=== PATIENT | male | born 1990 | race Caucasian/White ===

== ENCOUNTER 2020-08-17 21:46 | Emergency (ER) | payer BC ==
[2020-08-17 21:57] VITALS: TEMP 98.8
[2020-08-17] MEDS ORDERED: ONDANSETRON 4 MG/2 ML VIAL IVP STA (22:20)
[2020-08-17] MEDS ORDERED: SODIUM CHLORIDE 0.9% 1,000 ML IV ONE (22:20)
--- NOTE | 2020-08-17 23:17 | ED ---
General Adult HPI - General Chief complaint: Shortness of Breath Stated complaint: COVID+,SOB Time Seen by Provider: 08/17/20 22:01 Source: patient Mode of arrival: ambulatory Limitations: no limitations - History of Present Illness Initial comments: 30-year-old male patient presents to emergency department today for evaluation of worsening COVID-19 symptoms. Patient states that he started having symptoms and tested positive for Covid on 08/10/20. Was seen at [facility], does not have proof of positive result. Patient states that he was doing okay, then over the last couple of days became more short of breath, nauseated, no appetite, increased coughing. States when he coughs he gets pain in his chest. States he has been taking mucinex and his doctor gave him a prescription of tessalon perles. Patient denies any recent rash, abdominal pain, vomiting, diarrhea, constipation, back pain, numbness, tingling, dizziness, hematuria, dysuria, urinary urgency, urinary frequency, headache, visual changes, or any other complaints. - Related Data Home Medications Medication Instructions Recorded Confirmed Benzonatate [Benzonatate Perle] 200 mg PO TID PRN 08/17/20 08/17/20 guaiFENesin [Mucinex] 600 mg PO Q12H PRN 08/17/20 08/17/20 Allergies Allergy/AdvReac Type Severity Reaction Status Date / Time Penicillins Allergy Rash/Hives Verified 08/17/20 23:07 Review of Systems ROS Statement: Those systems with pertinent positive or pertinent negative responses have been documented in the HPI. ROS Other: All systems not noted in ROS Statement are negative. Past Medical History Past Medical History: No Reported History History of Any Multi-Drug Resistant Organisms: None Reported Past Surgical History: No Surgical Hx Reported Past Psychological History: No Psychological Hx Reported Smoking Status: Never smoker Past Alcohol Use History: Occasional Past Drug Use History: None Reported General Exam Limitations: no limitations General appearance: alert, in no apparent distress, other (This well-developed, well-nourished adult male patient in no acute distress. Vital signs upon presentation are temperature 98.8F, pulse 96, respirations 18, blood pressure 154/94, pulse ox 97% on room air.) Eye exam: Present: normal appearance, PERRL, EOMI. Absent: scleral icterus, conjunctival injection, periorbital swelling ENT exam: Present: normal exam, normal oropharynx, mucous membranes moist Respiratory exam: Present: normal lung sounds bilaterally. Absent: respiratory distress, wheezes, rales, rhonchi, stridor Cardiovascular Exam: Present: regular rate, normal rhythm, normal heart sounds. Absent: systolic murmur, diastolic murmur, rubs, gallop, clicks GI/Abdominal exam: Present: soft, normal bowel sounds. Absent: distended, tenderness, guarding, rebound, rigid Neurological exam: Present: alert, oriented X3, CN II-XII intact Psychiatric exam: Present: normal affect, normal mood Skin exam: Present: warm, dry, intact, normal color. Absent: rash Course Vital Signs 08/17/20 08/18/20 21:52 00:54 Temperature 98.8 F Pulse Rate 96 84 Respiratory 18 18 Rate Blood Pressure 154/94 134/55 O2 Sat by Pulse 97 96 Oximetry Medical Decision Making - Medical Decision Making 30 year-old male patient presents to the emergency department for evaluation of increased shortness of breath and cough after being diagnosed with COVID. Physical examination is unremarkable. V/S are good. Chest xray showed no evidence for infiltrates or pneumonia. Patient does meet criteria for family and a banana. I did discuss this medication including risks versus benefits. He agreed to receive the medicine. He was monitored for an hour after the infusion without any complications. He'll be discharged to follow up with his primary care physician for recheck in 1-2 days. Return parameters were discussed in detail. He verbalizes understanding and agrees this plan. Case discussed with Dr. Mccain. - Lab Data Lab Results 08/17/20 Range/Units 23:03 Coronavirus (PCR) Detected A (Not Detectd) - Radiology Data Radiology results: report reviewed, image reviewed 1 view of the chest sows normal heart, no lung disease. Report by Dr. Zuleta. Disposition Clinical Impression: COVID-19 Disposition: HOME SELF-CARE Condition: Good Instructions (If sedation given, give patient instructions): Coronavirus Disease 2019 (COVID-19) Additional Instructions: Increase fluids. Rest. Follow up with your primary care physician for recheck in 1-2 days. Return for any new, worsening, or concerning symptoms. Is patient prescribed a controlled substance at d/c from ED?: No Referrals: None,Stated [Primary Care Provider] - 1-2 days Time of Disposition: 02:20
--- NOTE | 2020-08-17 23:23 | XR ---
EXAMINATION TYPE: XR chest 1V DATE OF EXAM: 08/17/2020 COMPARISON: NONE HISTORY: Cough TECHNIQUE: Single view FINDINGS: Heart and mediastinum are normal. Lungs are clear of consolidation. There are no hilar mass es. Costophrenic angles are clear. The bony thorax is intact. The pulmonary vascularity is normal. IMPRESSION: Normal heart. No acute lung disease.
[2020-08-18] MEDS ORDERED: BAMLANIVIMAB (EUA) 700 MG, ETESEVIMAB (EUA) 1,400 MG in SODIUM CHLORIDE 0.9% 50 ML IVPB ONE (00:45)
[2020-08-18 02:18] VITALS: BP 138/60; PULSE 75; RESP 16
== END 2020-08-18 02:18 | disposition home or self-care (01) ==
LOC: EC 21:46
DX: U07.1 COVID-19 (principal)
CPT/HCPCS: 87635; 71045; 99285; 96365; 96375; J2405; Q0245

== ENCOUNTER 2021-08-02 00:55 | Emergency (ER) | payer BC, OTHER ==
[2021-08-02 01:06] VITALS: TEMP 97.1
[2021-08-02] MEDS ORDERED: ONDANSETRON 4 MG/2 ML VIAL IVP STA (01:54)
[2021-08-02] MEDS ORDERED: MORPHINE SULFATE 4 MG/ML SYRINGE IV STA (01:54)
[2021-08-02] MEDS ORDERED: SODIUM CHLORIDE 0.9% 1,000 ML IV STA (01:54)
--- NOTE | 2021-08-02 02:03 | ED ---
Abdominal Pain HPI - General Chief Complaint: Abdominal Pain Stated Complaint: Abd Pain Time Seen by Provider: 08/02/21 01:09 Source: patient, RN notes reviewed, old records reviewed Mode of arrival: ambulatory Limitations: no limitations - History of Present Illness Initial Comments: This is a 31-year-old male DF for evaluation. Patient has no significant medical history takes no medications. Patient presents with sudden onset of periumbilical crampy pressure-like abdominal pain rating to his back. No history of trauma no history of kidney stones no fevers no surgical history again no medical history takes no medications. Patient states again the pain was sudden onset has persistent here in the ER - Related Data Home Medications Medication Instructions Recorded Confirmed Benzonatate [Benzonatate Perle] 200 mg PO TID PRN 08/17/20 08/17/20 guaiFENesin [Mucinex] 600 mg PO Q12H PRN 08/17/20 08/17/20 Allergies Allergy/AdvReac Type Severity Reaction Status Date / Time Penicillins Allergy Rash/Hives Verified 08/17/20 23:07 Review of Systems ROS Statement: Those systems with pertinent positive or pertinent negative responses have been documented in the HPI. ROS Other: All systems not noted in ROS Statement are negative. Past Medical History Past Medical History: No Reported History History of Any Multi-Drug Resistant Organisms: None Reported Past Surgical History: No Surgical Hx Reported Past Psychological History: No Psychological Hx Reported Smoking Status: Never smoker Past Alcohol Use History: Occasional Past Drug Use History: None Reported General Exam Limitations: no limitations General appearance: alert, in no apparent distress Head exam: Present: atraumatic, normocephalic, normal inspection Eye exam: Present: normal appearance, PERRL, EOMI. Absent: scleral icterus, conjunctival injection, periorbital swelling ENT exam: Present: normal exam, mucous membranes moist Neck exam: Present: normal inspection. Absent: tenderness, meningismus, lymphadenopathy Respiratory exam: Present: normal lung sounds bilaterally. Absent: respiratory distress, wheezes, rales, rhonchi, stridor Cardiovascular Exam: Present: regular rate, normal rhythm, normal heart sounds. Absent: systolic murmur, diastolic murmur, rubs, gallop, clicks GI/Abdominal exam: Present: soft, normal bowel sounds. Absent: distended, tenderness, guarding, rebound, rigid Extremities exam: Present: normal inspection, full ROM, normal capillary refill. Absent: tenderness, pedal edema, joint swelling, calf tenderness Back exam: Present: normal inspection Neurological exam: Present: alert, oriented X3, CN II-XII intact Psychiatric exam: Present: normal affect, normal mood Skin exam: Present: warm, dry, intact, normal color. Absent: rash Course Vital Signs 08/02/21 08/02/21 08/02/21 01:02 02:05 03:00 Temperature 97.1 F L Pulse Rate 88 84 82 Respiratory 20 18 18 Rate Blood Pressure 171/112 171/111 181/100 O2 Sat by Pulse 100 95 97 Oximetry - Reevaluation(s) Reevaluation #1: 08/02/21 04:23 Medical record is reviewed Reevaluation #2: 08/02/21 04:23 Patient symptoms are improved, resolved Reevaluation #3: 08/02/21 04:23 Patient informed results and questions answered Reevaluation #4: 08/02/21 04:23 Spoke with patient at length regarding elevated blood pressure need for primary care Medical Decision Making - Medical Decision Making 31 male to the emergency department for evaluation of significant abdominal pain. Pain is improved, resolved here in the ER, patient feels improved and can be discharged home - Lab Data Result diagrams: 08/02/21 01:59 08/02/21 01:59 Lab Results 08/02/21 08/02/21 Range/Units 01:59 01:59 WBC 9.8 (3.8-10.6) k/uL RBC 5.07 (4.30-5.90) m/uL Hgb 13.9 (13.0-17.5) gm/dL Hct 42.0 (39.0-53.0) % MCV 82.9 (80.0-100.0) fL MCH 27.4 (25.0-35.0) pg MCHC 33.1 (31.0-37.0) g/dL RDW 12.8 (11.5-15.5) % Plt Count 274 (150-450) k/uL MPV 7.6 Neutrophils % 74 % Lymphocytes % 18 % Monocytes % 5 % Eosinophils % 2 % Basophils % 1 % Neutrophils # 7.3 (1.3-7.7) k/uL Lymphocytes # 1.7 (1.0-4.8) k/uL Monocytes # 0.5 (0-1.0) k/uL Eosinophils # 0.1 (0-0.7) k/uL Basophils # 0.1 (0-0.2) k/uL Sodium 137 (137-145) mmol/L Potassium 4.3 (3.5-5.1) mmol/L Chloride 104 (98-107) mmol/L Carbon Dioxide 21 L (22-30) mmol/L Anion Gap 12 mmol/L BUN 23 H (9-20) mg/dL Creatinine 0.90 (0.66-1.25) mg/dL Est GFR (CKD-EPI)AfAm >90 (>60 ml/min/1.73 sqM) Est GFR (CKD-EPI)NonAf >90 (>60 ml/min/1.73 sqM) Glucose 140 H (74-99) mg/dL Calcium 9.1 (8.4-10.2) mg/dL Total Bilirubin 0.9 (0.2-1.3) mg/dL AST 42 (17-59) U/L ALT 54 H (4-49) U/L Alkaline Phosphatase 110 (38-126) U/L Total Protein 8.0 (6.3-8.2) g/dL Albumin 4.6 (3.5-5.0) g/dL Amylase 42 (30-110) U/L Lipase 52 (23-300) U/L Disposition Clinical Impression: Abdominal pain Disposition: HOME SELF-CARE Condition: Good Instructions (If sedation given, give patient instructions): Abdominal Pain (ED) Is patient prescribed a controlled substance at d/c from ED?: No Referrals: None,Stated [Primary Care Provider] - 1-2 days
[2021-08-02 02:11] LABS: Basophils # (A) 0.1 k/uL (0-0.2); Basophils % (A) 1 %; Eosinophils # (A) 0.1 k/uL (0-0.7); Eosinophils % (A) 2 %; HGB 13.9 gm/dL (13.0-17.5); Lymphocytes # (A) 1.7 k/uL (1.0-4.8); Lymphocytes % (A) 18 %; MCH 27.4 pg (25.0-35.0); MCHC 33.1 g/dL (31.0-37.0); MCV 82.9 fL (80.0-100.0); Mean Platelet Volume 7.6; Monocytes # (A) 0.5 k/uL (0-1.0); Monocytes % (A) 5 %; Neutrophils # (A) 7.3 k/uL (1.3-7.7); Neutrophils % (A) 74 %; Platelet Count 274 k/uL (150-450); RBC 5.07 m/uL (4.30-5.90); RDW 12.8 % (11.5-15.5); WBC 9.8 k/uL (3.8-10.6)
[2021-08-02 02:23] LABS: ALT 54 U/L (4-49); AST 42 U/L (17-59); African American GFR (CKD) >90 (>60 ml/min/1.73 sqM); Albumin 4.6 g/dL (3.5-5.0); Alkaline Phosphatase 110 U/L (38-126); Amylase 42 U/L (30-110); Anion Gap 12 mmol/L; Blood Urea Nitrogen 23 mg/dL (9-20); Calcium 9.1 mg/dL (8.4-10.2); Carbon Dioxide 21 mmol/L (22-30); Chloride 104 mmol/L (98-107); Glucose 140 mg/dL (74-99); Lipase 52 U/L (23-300); Non-African American GFR(CKD) >90 (>60 ml/min/1.73 sqM); Sodium 137 mmol/L (137-145); Total Bilirubin 0.9 mg/dL (0.2-1.3)
[2021-08-02 02:37] LABS: Potassium 4.3 mmol/L (3.5-5.1)
[2021-08-02 03:18] VITALS: RESP 18
--- NOTE | 2021-08-02 03:30 | CT ---
EXAMINATION TYPE: CT abdomen pelvis w con DATE OF EXAM: 08/02/2021 COMPARISON: None HISTORY: back pain pt. unable to hold still for first scan. best images possible given Pt. conditi on CT DLP: 2846.4 mGycm Automated exposure control for dose reduction was used. CONTRAST: Performed with IV Contrast, patient injected with 100 mL of Isovue 300. Images obtained from the diaphragm to the floor the pelvis with IV contrast. FINDINGS: Lung bases are clear. There is no pleural effusion. Heart size is normal. There is no pericardial eff usion. Liver spleen and stomach pancreas and gallbladder appear normal. The bile ducts are nondilated. There is no adrenal mass. Kidneys show satisfactory contrast opacification. There is no hydronephrosi s. Ureters are not dilated. Appendix is posterior and appears normal. Bladder distends smoothly. Ther e is no inguinal hernia. No free fluid in the pelvis. Delayed images show normal renal excretion. There is no mesenteric edema. There is no ascites or free air. There is no bowel obstruction. Exam li mited slightly by motion. The lumbar spine is intact. No compression fracture. Bony pelvis appears in tact. IMPRESSION: Exam limited slightly by motion. No evidence of acute abdomen and pelvis. Normal appendix.
[2021-08-02 04:01] LABS: Appearance,Urine Clear (Clear); Bilirubin,Urine Negative (Negative); Blood,Urine Negative (Negative); Color,Urine Yellow; Glucose,Urine (UA) Negative (Negative); Ketones,Urine 1+ (Negative); Leukocyte Esterase,Urine Negative (Negative); Nitrite,Urine Negative (Negative); Protein,Urine Negative (Negative); Urobilinogen,Urine <2.0 mg/dL (<2.0)
[2021-08-02 04:31] VITALS: BP 154/84; PULSE 79
== END 2021-08-02 04:43 | disposition home or self-care (01) ==
LOC: EC 00:55
DX: R10.33 Periumbilical pain (principal)
CPT/HCPCS: 36415; 80053; 82150; 83690; 85025; 81003; 74177; 99284; 96374; 96375; 96361 ×2; J2270; J2405; Q9967

== ENCOUNTER 2021-08-07 09:37 | Inpatient (IN) | payer BC, OTHER ==
[2021-08-07 10:37] LABS: Basophils % (A) 0 %; Eosinophils # (A) 0.2 k/uL (0-0.7); Eosinophils % (A) 2 %; HGB 13.3 gm/dL (13.0-17.5); Lymphocytes # (A) 1.8 k/uL (1.0-4.8); Lymphocytes % (A) 23 %; MCH 27.4 pg (25.0-35.0); MCHC 33.3 g/dL (31.0-37.0); MCV 82.4 fL (80.0-100.0); Mean Platelet Volume 7.1; Monocytes # (A) 0.4 k/uL (0-1.0); Monocytes % (A) 5 %; Neutrophils # (A) 5.5 k/uL (1.3-7.7); Neutrophils % (A) 69 %; Platelet Count 297 k/uL (150-450); RBC 4.85 m/uL (4.30-5.90)
[2021-08-07] MEDS ORDERED: SODIUM CHLORIDE 0.9% 1,000 ML IV STA (10:47)
[2021-08-07] MEDS ORDERED: NALOXONE 0.4 MG/ML 1 ML VIAL IV PRN (10:49)
[2021-08-07] MEDS ORDERED: ONDANSETRON 4 MG/2 ML VIAL IVP PRN (10:49)
[2021-08-07 10:50] LABS: INR 0.9 (<1.2); Partial Thromboplastin Time 26.7 sec (22.0-30.0)
--- NOTE | 2021-08-07 10:51 | ED ---
General Adult HPI - General Chief complaint: Abdominal Pain Stated complaint: Gall Bladder Time Seen by Provider: 08/07/21 09:40 Source: patient, EMS, RN notes reviewed, old records reviewed Mode of arrival: EMS Limitations: no limitations - History of Present Illness Initial comments: Patient is a 31-year-old male who presents after being transferred from [facility] emergency department. Patient originally presented there complaining of a one- week history of abdominal pain, nausea, vomiting. Patient was originally evaluated here last Tuesday, and had a normal workup. Was sent home. States the symptoms somewhat improved but over the last 1-2 days has been having worsening epigastric and right upper quadrant abdominal pain, right shoulder pain, as well as nausea and vomiting that is nonbilious and nonbloody. Denies any diarrhea. He was diagnosed with acute cholecystitis based on CT imaging at the outpatient facility. Revealed a thickened gallbladder wall as well as pericholecystic fluid. Laboratory studies at the outpatient facility were relatively unremarkable. Patient was started on IV Rocephin and Flagyl, and then transferred to our facility for surgical evaluation. Patient arrives and states his pain is relatively under control. His no other acute complaint at this time. I recommended he stay nothing by mouth at this time. Denies chest pain, shortness breath, fevers, chills, cough. - Related Data Home Medications Medication Instructions Recorded Confirmed Ascorbic Acid [Vitamin C] 1,000 mg PO DAILY 08/07/21 08/07/21 Cholecalciferol (Vitamin D3) 75 mcg PO DAILY 08/07/21 08/07/21 [Vitamin D3 (3000 Iu)] Magnesium Oxide [Simmons] 500 mg PO DAILY 08/07/21 08/07/21 Riboflavin (Vitamin B2) [Vitamin 50 mg PO DAILY 08/07/21 08/07/21 B-2] Zinc Gluconate [Zinc] 50 mg PO DAILY 08/07/21 08/07/21 Allergies Allergy/AdvReac Type Severity Reaction Status Date / Time Penicillins Allergy Rash/Hives Verified 08/07/21 10:39 Review of Systems ROS Statement: Those systems with pertinent positive or pertinent negative responses have been documented in the HPI. Review of Systems: CONST: Denies fever EYES: Denies blurry vision ENT: Denies nasal congestion C/V: Denies Chest pain RESP: Denies shortness of breath GI: Endorses abdominal pain : Denies dysuria SKIN: Denies rash. MSK: Denies joint pain. NEURO: Denies headache ROS Other: All systems not noted in ROS Statement are negative. Past Medical History Past Medical History: No Reported History History of Any Multi-Drug Resistant Organisms: None Reported Past Surgical History: No Surgical Hx Reported Past Psychological History: No Psychological Hx Reported Smoking Status: Never smoker Past Alcohol Use History: Occasional Past Drug Use History: None Reported - Past Family History Father Family Medical History: Congestive Heart Failure (CHF), Diabetes Mellitus, Hypertension Additional Family Medical History / Comment(s): Obesity Mother Family Medical History: No Reported History Additional Family Medical History / Comment(s): Mother is healthy General Exam - General Exam Comments Initial Comments: General: Appears in no acute distress. HEAD: Normal with no signs of head trauma. EYES: PERRLA, EOMI, conjunctiva normal, no discharge. ENT: Hearing grossly intact, normal oropharynx. RESPIRATORY: Clear breath sounds bilaterally. No wheezes, rales, or rhonchi. C/V: Regular rate and rhythm. S1 and S2 auscultated, no edema, peripheral pulses 2+ and intact throughout ABD: Abdomen soft, nondistended. Patient is tender to palpation epigastric and right upper quadrant. No guarding. No peritoneal signs. No rebound tenderness. EXT: Normal range of motion, no obvious deformity SKIN: No rashes or lesions observed on exposed skin. NEURO: Alert and oriented 4. Limitations: no limitations Course Vital Signs 08/07/21 08/07/21 09:50 11:41 Temperature 98.7 F Pulse Rate 86 61 Respiratory 18 16 Rate Blood Pressure 126/81 135/78 O2 Sat by Pulse 97 95 Oximetry Medical Decision Making - Medical Decision Making Based on the patient's presentation and physical exam, I do believe he is likely experiencing acute cystitis. I did review the patient's laboratory studies and imaging results from the outpatient facility. We will obtain repeat laboratory studies as well as right upper quadrant ultrasound. We will continue the patient's daily Rocephin as well as 3 times a day Flagyl. He will be started on IV fluids. Patient is made nothing by mouth at this time. He was in agreement this plan. IV morphine as needed for pain. Laboratory studies are remarkable for mildly elevated ALT of 56. Otherwise unremarkable. Covid ultrasound revealed findings consistent with the CT imaging, with a thickened gallbladder wall with surrounding pericholecystic edema/fluid. On reevaluation, patient remains unchanged. I discussed the findings with him. I would like to admit him. He was in agreement this plan. I spoke with the admitting surgeon, Dr. Waldron was in agreement this plan. He'll evaluate the patient and determine need for surgery later today. Patient NPO in the meantime. - Lab Data Result diagrams: 08/07/21 10:22 08/07/21 10:22 Lab Results 08/07/21 08/07/21 08/07/21 Range/Units 10:22 10:22 10:22 WBC 8.0 (3.8-10.6) k/uL RBC 4.85 (4.30-5.90) m/uL Hgb 13.3 (13.0-17.5) gm/dL Hct 40.0 (39.0-53.0) % MCV 82.4 (80.0-100.0) fL MCH 27.4 (25.0-35.0) pg MCHC 33.3 (31.0-37.0) g/dL RDW 13.0 (11.5-15.5) % Plt Count 297 (150-450) k/uL MPV 7.1 Neutrophils % 69 % Lymphocytes % 23 % Monocytes % 5 % Eosinophils % 2 % Basophils % 0 % Neutrophils # 5.5 (1.3-7.7) k/uL Lymphocytes # 1.8 (1.0-4.8) k/uL Monocytes # 0.4 (0-1.0) k/uL Eosinophils # 0.2 (0-0.7) k/uL Basophils # 0.0 (0-0.2) k/uL PT 10.0 (9.0-12.0) sec INR 0.9 (<1.2) APTT 26.7 (22.0-30.0) sec Sodium 140 (137-145) mmol/L Potassium 4.1 (3.5-5.1) mmol/L Chloride 106 (98-107) mmol/L Carbon Dioxide 23 (22-30) mmol/L Anion Gap 11 mmol/L BUN 14 (9-20) mg/dL Creatinine 0.76 (0.66-1.25) mg/dL Est GFR (CKD-EPI)AfAm >90 (>60 ml/min/1.73 sqM) Est GFR (CKD-EPI)NonAf >90 (>60 ml/min/1.73 sqM) Glucose 98 (74-99) mg/dL Calcium 8.4 (8.4-10.2) mg/dL Total Bilirubin 0.8 (0.2-1.3) mg/dL AST 30 (17-59) U/L ALT 56 H (4-49) U/L Alkaline Phosphatase 108 (38-126) U/L Total Protein 7.1 (6.3-8.2) g/dL Albumin 3.8 (3.5-5.0) g/dL Amylase 38 (30-110) U/L Lipase 32 (23-300) U/L Disposition Clinical Impression: Acute cholecystitis Disposition: ADMITTED IP TO THIS [facility] Condition: Stable Time of Disposition: 10:40
[2021-08-07 11:00] LABS: ALT 56 U/L (4-49); AST 30 U/L (17-59); African American GFR (CKD) >90 (>60 ml/min/1.73 sqM); Albumin 3.8 g/dL (3.5-5.0); Alkaline Phosphatase 108 U/L (38-126); Amylase 38 U/L (30-110); Anion Gap 11 mmol/L; Blood Urea Nitrogen 14 mg/dL (9-20); Calcium 8.4 mg/dL (8.4-10.2); Carbon Dioxide 23 mmol/L (22-30); Chloride 106 mmol/L (98-107); Glucose 98 mg/dL (74-99); Lipase 32 U/L (23-300); Non-African American GFR(CKD) >90 (>60 ml/min/1.73 sqM); Potassium 4.1 mmol/L (3.5-5.1); Sodium 140 mmol/L (137-145); Total Bilirubin 0.8 mg/dL (0.2-1.3); Total Protein 7.1 g/dL (6.3-8.2)
--- NOTE | 2021-08-07 11:21 | US ---
EXAMINATION TYPE: US gallbladder DATE OF EXAM: 08/07/2021 COMPARISON: Outside CT dated 08/07/2021 CLINICAL HISTORY: pain, cholecystitis. RUQ pain x 1 week EXAM MEASUREMENTS: Liver Length: 16.0 cm Gallbladder Wall: 0.3 cm CBD: 0.5 cm Right Kidney: 9.2 x 4.8 x 5.4 cm Extremely limited exam due to patient body habitus and overlying bowel gas Pancreas: Obscured by bowel gas Liver: Limited visualization, scanned through ribs Gallbladder: sludge vs artifact, upper limits of normal in size Evidence for sonographic Kaur's sign: neg CBD: limited visualization Right Kidney: No hydronephrosis or masses seen Suboptimal visualization of the liver without definite focal lesion. Thickened edematous gallbladder wall with mild surrounding fat stranding, also appreciated on the recent outside CT scan. Questionabl e gallbladder sludge without definite calculi. The gallbladder wall measures up to 6 mm. The CBD and the pancreas are suboptimally visualized. Grossly unremarkable right kidney. IMPRESSION: Technically challenging ultrasound. Slightly thickened edematous gallbladder wall with suspected surr ounding echogenic fat/inflammatory changes, also appreciated in the recent outside CT scan suggestive of acute cholecystitis. Questionable gallbladder sludge without definite calculi. Recommend clinical correlation and surgical consultation. Other findings as described above.
[2021-08-07] MEDS: metroNIDAZOLE-NS PMX 500 MG in SALINE 1 100ML.BAG IVPB SCH (16:09)
--- NOTE | 2021-08-07 16:54 | P.GSHP ---
History of Present Illness H&P Date: 08/07/21 31-year-old male presents to the emergency department as a transfer from an outside facility with concern for acute cholecystitis. He states that his pain began approximately 1 week ago and that brought him to the emergency department and he was sent home with diagnosis of gastritis and gastric buildup. He also followed with his primary care doctor who prescribed him Prilosec. He states that after a large dinner last night he began having significant abdominal pain that woke him a lot of his sleep. He then presented to the emergency department. CT was performed at the outpatient facility of the abdomen and pelvis concerning for gallbladder wall edema and pericholecystic fluid concerning for acute cholecystitis. He did have an ultrasound of the gallbladder performed at this facility with similar concerns for acute cholecystitis. He does not have evidence of leukocytosis or any significant liver enzyme changes at this point. He has been started on IV antibiotics. He denies any nausea or vomiting episodes recently. - Review of Systems All systems: negative Past Medical History Past Medical History: No Reported History Additional Past Medical History / Comment(s): Rhabdo as teen d/t dehydration History of Any Multi-Drug Resistant Organisms: None Reported Past Surgical History: No Surgical Hx Reported Additional Past Surgical History / Comment(s): Myringotomy/tubes in ears, testicular hernia repair as an . Past Anesthesia/Blood Transfusion Reactions: No Reported Reaction Additional Past Anesthesia/Blood Transfusion Reaction / Comment(s): Surgery as a child/woke up fiesty. Past Psychological History: No Psychological Hx Reported Smoking Status: Never smoker Past Alcohol Use History: Occasional Past Drug Use History: None Reported - Past Family History Father Family Medical History: Congestive Heart Failure (CHF), Diabetes Mellitus, Hypertension Additional Family Medical History / Comment(s): Obesity Mother Family Medical History: No Reported History Additional Family Medical History / Comment(s): Mother is healthy Medications and Allergies Home Medications Medication Instructions Recorded Confirmed Type Ascorbic Acid [Vitamin C] 1,000 mg PO DAILY 08/07/21 08/07/21 History Cholecalciferol (Vitamin D3) 75 mcg PO DAILY 08/07/21 08/07/21 History [Vitamin D3 (3000 Iu)] Magnesium Oxide [Simmons] 500 mg PO DAILY 08/07/21 08/07/21 History Riboflavin (Vitamin B2) [Vitamin 50 mg PO DAILY 08/07/21 08/07/21 History B-2] Zinc Gluconate [Zinc] 50 mg PO DAILY 08/07/21 08/07/21 History Allergies Allergy/AdvReac Type Severity Reaction Status Date / Time Penicillins Allergy Rash/Hives Verified 08/07/21 10:39 Surgical - Exam Osteopathic Statement: *. No significant issues noted on an osteopathic structural exam other than those noted in the History and Physical/Consult. Vital Signs Temp Pulse Resp BP Pulse Ox 98.7 F 86 18 126/81 97 08/07/21 09:50 08/07/21 09:50 08/07/21 09:50 08/07/21 09:50 08/07/21 09:50 - General well nourished, no distress - Eyes PERRL - ENT no hearing loss - Neck trachea midline - Respiratory normal respiratory effort - Abdomen Soft, some tenderness to palpation in the right upper quadrant, nondistended, no rebound, no guarding - Neurologic normal coordination, normal sensation - Psychiatric oriented to time, oriented to person, oriented to place Results - Labs 08/07/21 10:22 08/07/21 10:22 Abnormal Lab Results - Last 24 Hours (Table) 08/07/21 Range/Units 10:22 ALT 56 H (4-49) U/L Diabetes panel 08/07/21 Range/Units 10:22 Sodium 140 (137-145) mmol/L Potassium 4.1 (3.5-5.1) mmol/L Chloride 106 (98-107) mmol/L Carbon Dioxide 23 (22-30) mmol/L BUN 14 (9-20) mg/dL Creatinine 0.76 (0.66-1.25) mg/dL Glucose 98 (74-99) mg/dL Calcium 8.4 (8.4-10.2) mg/dL AST 30 (17-59) U/L ALT 56 H (4-49) U/L Alkaline Phosphatase 108 (38-126) U/L Total Protein 7.1 (6.3-8.2) g/dL Albumin 3.8 (3.5-5.0) g/dL Calcium panel 08/07/21 Range/Units 10:22 Calcium 8.4 (8.4-10.2) mg/dL Albumin 3.8 (3.5-5.0) g/dL Pituitary panel 08/07/21 Range/Units 10:22 Sodium 140 (137-145) mmol/L Potassium 4.1 (3.5-5.1) mmol/L Chloride 106 (98-107) mmol/L Carbon Dioxide 23 (22-30) mmol/L BUN 14 (9-20) mg/dL Creatinine 0.76 (0.66-1.25) mg/dL Glucose 98 (74-99) mg/dL Calcium 8.4 (8.4-10.2) mg/dL Adrenal panel 08/07/21 Range/Units 10:22 Sodium 140 (137-145) mmol/L Potassium 4.1 (3.5-5.1) mmol/L Chloride 106 (98-107) mmol/L Carbon Dioxide 23 (22-30) mmol/L BUN 14 (9-20) mg/dL Creatinine 0.76 (0.66-1.25) mg/dL Glucose 98 (74-99) mg/dL Calcium 8.4 (8.4-10.2) mg/dL Total Bilirubin 0.8 (0.2-1.3) mg/dL AST 30 (17-59) U/L ALT 56 H (4-49) U/L Alkaline Phosphatase 108 (38-126) U/L Total Protein 7.1 (6.3-8.2) g/dL Albumin 3.8 (3.5-5.0) g/dL Assessment and Plan Plan: 31-year-old male with acute cholecystitis. He has been started on IV antibiotics and is being kept nothing by mouth at this time. Plan is for laparo scopic cholecystectomy. Risks, benefits and alternatives were provided to the patient. Further recommendations to be made after procedures performed.
[2021-08-07 16:55] LABS: Appearance,Urine Clear (Clear); Bilirubin,Urine Negative (Negative); Blood,Urine Negative (Negative); Color,Urine Yellow; Glucose,Urine (UA) Negative (Negative); Ketones,Urine Trace (Negative); Leukocyte Esterase,Urine Negative (Negative); Nitrite,Urine Negative (Negative); PH, Urine 5.5 (5.0-8.0); Protein,Urine Trace (Negative); Urobilinogen,Urine <2.0 mg/dL (<2.0)
[2021-08-07 17:02] LABS: Specific Gravity,Urine 1.046 (1.001-1.035)
[2021-08-07] MEDS: MORPHINE SULFATE 4 MG/ML SYRINGE IV PRN (17:38)
[2021-08-08] MEDS: HEPARIN SODIUM,PORCINE/PF 5,000 UNIT/0.5 ML SYRINGE SQ SCH ×3 (00:28→16:02)
[2021-08-08] MEDS: metroNIDAZOLE-NS PMX 500 MG in SALINE 1 100ML.BAG IVPB SCH ×3 (00:28→16:02)
[2021-08-08] MEDS: MORPHINE SULFATE 4 MG/ML SYRINGE IV PRN ×2 (03:19→08:05)
[2021-08-08 08:56] LABS: Albumin 3.7 g/dL (3.8-4.9); Albumin/Globulin Ratio 1.48 (1.60-3.17); Anion Gap 11.9 mmol/L (10.00-18.00); BUN/Creat Ratio 13.88 Ratio (12.00-20.00); Blood Urea Nitrogen 11.1 mg/dL (9.0-27.0); Calcium 8.5 mg/dL (8.7-10.3); Carbon Dioxide 21.1 mmol/L (20.0-27.5); Globulin 2.5 g/dL (1.6-3.3); Non-African American GFR(CKD) 118.2 (60.0-200.0); Potassium 4.3 mmol/L (3.5-5.5); Total Bilirubin 0.6 mg/dL (0.30-1.20); Total Protein 6.2 g/dL (6.2-8.2)
[2021-08-08 09:36] VITALS: BMI 45.1
[2021-08-08 11:31] LABS: Basophils # (A) 0.04 X 10*3/uL (0.00-0.10); Basophils % (A) 0.6 %; Eosinophils # (A) 0.25 X 10*3/uL (0.04-0.35); Eosinophils % (A) 3.6 %; HCT 38.7 % (39.6-50.0); HGB 11.7 g/dL (13.0-17.0); Immature Grans, Automated 0.9 %; Lymphocytes # (A) 1.62 X 10*3/uL (0.90-5.00); Lymphocytes % (A) 23.2 %; MCH 25.9 pg (27.0-32.0); MCHC 30.2 g/dL (32.0-37.0); MCV 85.6 fL (80.0-97.0); Mean Platelet Volume 9.9 fL (9.5-12.2); Monocytes # (A) 0.48 X 10*3/uL (0.20-1.00); Monocytes % (A) 6.9 %; NRBC Per 100 WBC 0 /100 WBCS (0.0-0.0); Neutrophils # (A) 4.53 X 10*3/uL (1.80-7.70); Neutrophils % (A) 64.8 %; Platelet Count 243 X 10*3/uL (140-440); RBC 4.52 X 10*6/uL (4.40-5.60); RDW 12.4 % (11.5-14.5); WBC 6.98 X 10*3/uL (4.50-10.00)
--- NOTE | 2021-08-08 12:27 | P.PN ---
Subjective Progress Note Date: 08/08/21 Patient seen and examined at bedside. No acute events. Still some tenderness to the right upper quadrant, states unchanged from yesterday. No leukocytosis. Objective - Vital Signs Vital signs: Vital Signs Temp 98.1 F 08/08/21 07:00 Pulse 84 08/08/21 07:00 Resp 12 08/08/21 07:00 BP 142/89 08/08/21 07:00 Pulse Ox 94 L 08/08/21 07:00 Intake & Output 08/07/21 08/08/21 08/08/21 18:59 06:59 18:59 Intake Total 0 Balance 0 Weight 130.635 kg 130.635 kg Intake: Oral 0 Other: Voiding Method Toilet # Voids 2 # Bowel Movements 1 - Constitutional General appearance: Present: cooperative - Gastrointestinal Gastrointestinal Comment(s): Soft, mild tenderness right upper quadrant, nondistended, no rebound, no guarding - Psychiatric Psychiatric: Present: A&O x's 3 - Labs CBC & Chem 7: 08/08/21 06:21 08/08/21 06:21 Labs: Abnormal Lab Results - Last 24 Hours (Table) 08/07/21 08/08/21 08/08/21 Range/Units 16:28 06:21 06:21 Hgb 11.7 L (13.0-17.0) g/dL Hct 38.7 L (39.6-50.0) % MCH 25.9 L (27.0-32.0) pg MCHC 30.2 L (32.0-37.0) g/dL Immature Gran # 0.06 H (0.00-0.04) X 10*3/uL Calcium 8.5 L (8.7-10.3) mg/dL ALT 55 H (10-49) U/L Albumin 3.7 L (3.8-4.9) g/dL Albumin/Globulin Ratio 1.48 L (1.60-3.17) g/dL Ur Specific [place] 1.046 H (1.001-1.035) Urine Protein Trace H (Negative) Urine Ketones Trace H (Negative) Assessment and Plan Plan: 31-year-old male with acute cholecystitis. Discussed case with OR. As it is the weekend with a limited staffing available currently, OR has significant number of cases that are currently reported. Earliest time for operative time will be tomorrow morning at 8 AM as the patient is nonemergent at this moment. Patient was explained this and is agreeable. Continue IV antibiotics. Okay for clear liquid diet and nothing by mouth after midnight.
[2021-08-08] MEDS: LACTATED RINGERS 1,000 ML IV SCH ×2 (12:30→15:26)
[2021-08-09] MEDS: metroNIDAZOLE-NS PMX 500 MG in SALINE 1 100ML.BAG IVPB SCH ×4 (00:02→23:15)
[2021-08-09] MEDS: HEPARIN SODIUM,PORCINE/PF 5,000 UNIT/0.5 ML SYRINGE SQ SCH ×4 (00:02→19:36)
[2021-08-09] MEDS: LACTATED RINGERS 1,000 ML IV SCH ×3 (00:03→19:36)
[2021-08-09] MEDS ORDERED: SUCCINYLCHOLINE CHLORIDE VIAL 200 MG/10 ML VIAL IV ONE (08:09)
[2021-08-09] MEDS ORDERED: fentaNYL (PF) 50 MCG/ML 2 ML AMP ONE (08:09)
[2021-08-09] MEDS ORDERED: LIDOCAINE 1% INJ 10MG/ML (20 ML MDV) ONE (08:09)
[2021-08-09] MEDS ORDERED: HYDROmorphone (PF) 1 MG/ML ONE (08:09)
[2021-08-09] MEDS ORDERED: ONDANSETRON 4 MG/2 ML VIAL ONE (08:09)
[2021-08-09] MEDS ORDERED: PROPOFOL 10 MG/ML 20 ML VIAL IV ONE (08:09)
[2021-08-09] MEDS ORDERED: DEXAMETHASONE SOD PHOSPHATE 10 MG/ML 1 ML VIAL ONE (08:09)
[2021-08-09] MEDS ORDERED: GLYCOPYRROLATE 0.2 MG/ML 2 ML VIAL ONE (08:09)
[2021-08-09] MEDS ORDERED: KETOROLAC 15 MG/ML 1 ML VIAL ONE (08:09)
[2021-08-09] MEDS ORDERED: INDOCYANINE GREEN 25 MG VIAL IV ONE (08:09)
[2021-08-09] MEDS ORDERED: NEOSTIGMINE 1 MG/ML 10 ML VIAL ONE (08:09)
[2021-08-09] MEDS ORDERED: MIDAZOLAM 2 MG/2 ML VIAL ONE (08:09)
[2021-08-09] MEDS ORDERED: ROCURONIUM 10 MG/ML (5 ML VIAL) IV ONE (08:09)
[2021-08-09] MEDS ORDERED: LACTATED RINGERS 1,000 ML IV ONE ×2 (08:14→10:10)
[2021-08-09] MEDS ORDERED: BUPIVACAIN-EPI 0.25%-1:200,000 30 ML VIAL SQ ONE ×2 (08:32)
--- NOTE | 2021-08-09 09:40 | P.OP ---
Date of Procedure: 08/09/21 Preoperative Diagnosis: Acute cholecystitis Postoperative Diagnosis: Acute cholecystitis Procedure(s) Performed: Robotic cholecystectomy Anesthesia: HREMAN Surgeon: Deisy Waldron Pathology: other (Gallbladder and contents) Condition: stable Disposition: floor Indications for Procedure: 31-year-old male presents with acute cholecystitis. He has had symptoms for over a week and has had multiple emergency department visits. Plan is for robotic cholecystectomy. Risks, benefits and alternatives were provided to the patient. He did provide consent prior to attending the operating suite. Operative Findings: Inflamed and edematous gallbladder Description of Procedure: The patient was brought into the operating suite and placed in supine position on the operating table. Sedation was provided by anesthesia and the patient underwent endotracheal intubation. He was then prepped and draped in regular sterile fashion. An infraumbilical incision was made and dissection was carried to the fascia. The fascia was incised and an 8 mm trocar was placed. Pneumoperitoneum was achieved. 2 additional 8 mm trochars were placed in the right lower quadrant and one was placed in the left upper quadrant. The robot was then docked. The gallbladder was examined and was noted to have significant inflammation and adherent peritoneal tissue. The gallbladder was noted to be thickened and edematous. It was retracted superiorly and laterally and dissec tion was carried along the infundibulum to isolate the cystic duct and cystic artery. On dissection, the cystic duct was skeletonized and anatomy was confirmed with ICG technology. 2 clips were placed proximally on the cystic duct and one was placed distally and the cystic duct was ligated. Additional dissection revealed the cystic artery and 2 clips were placed proximally and one was placed distally and the cystic artery was dissected. Cautery was then used to dissect the gallbladder from the gallbladder fossa on the liver bed. Hemostasis was noted to be maintained. The gallbladder was then placed in an Endo Catch bag and removed from the abdomen from the infra umbilical incision site. Copious muss irrigation was then placed in the right upper quadrant. Due to the significant amount of inflammation, YOANDY drain was placed in the right upper quadrant and secured from the right lateral 8 mm port site. This was secured with a 2-0 nylon suture. The infraumbilical fascial site was then closed with Koko-Jorge Luis and 0 Vicryl suture under direct visualization. This pneumoperitoneum was released. All ports removed from the abdomen. Skin incisions were closed with 4-0 Vicryl subcuticular suture. Sponge and instrument count were correct 2. Sterile dressing was applied. The patient was awakened in the operating suite and taken to postanesthesia care unit in stable condition.
[2021-08-09] MEDS ORDERED: SCOPOLAMINE 1 MG/72 HR PATCH TRANSDERM ONE (10:04)
[2021-08-09] MEDS ORDERED: ONDANSETRON 4 MG/2 ML VIAL IVP ONE (10:30)
[2021-08-09] MEDS ORDERED: HYDROmorphone 0.5 MG/0.5 ML SYRINGE IVP ONE (10:35)
[2021-08-09] MEDS: KETOROLAC 15 MG/ML 1 ML VIAL IVP SCH ×3 (13:03→23:13)
[2021-08-09] MEDS: HYDROcodone/APAP 5-325MG 1 EACH TAB PO PRN ×2 (15:23→22:45)
[2021-08-09 17:43] LABS: Basophils % (A) 0 %; Eosinophils # (A) 0.1 k/uL (0-0.7); Eosinophils % (A) 1 %; HCT 45.9 % (39.0-53.0); HGB 14.3 gm/dL (13.0-17.5); Lymphocytes # (A) 0.5 k/uL (1.0-4.8); Lymphocytes % (A) 5 %; MCH 26.4 pg (25.0-35.0); MCHC 31.1 g/dL (31.0-37.0); MCV 84.9 fL (80.0-100.0); Mean Platelet Volume 7.2; Monocytes # (A) 0.1 k/uL (0-1.0); Monocytes % (A) 1 %; Neutrophils # (A) 9.1 k/uL (1.3-7.7); Neutrophils % (A) 92 %; Platelet Count 327 k/uL (150-450); RBC 5.41 m/uL (4.30-5.90); RDW 12.2 % (11.5-15.5); WBC 9.9 k/uL (3.8-10.6)
[2021-08-09] MEDS: PANTOPRAZOLE 40 MG/10 ML VIAL IVP SCH (17:44)
[2021-08-10] MEDS: LACTATED RINGERS 1,000 ML IV SCH ×2 (04:37→15:26)
[2021-08-10] MEDS: KETOROLAC 15 MG/ML 1 ML VIAL IVP SCH ×3 (05:43→19:04)
[2021-08-10] MEDS: metroNIDAZOLE-NS PMX 500 MG in SALINE 1 100ML.BAG IVPB SCH ×2 (08:25→16:13)
[2021-08-10] MEDS: HEPARIN SODIUM,PORCINE/PF 5,000 UNIT/0.5 ML SYRINGE SQ SCH ×2 (08:27→16:13)
[2021-08-10] MEDS: PANTOPRAZOLE 40 MG/10 ML VIAL IVP SCH (08:27)
[2021-08-10 09:14] LABS: Basophils # (A) 0.01 X 10*3/uL (0.00-0.10); Basophils % (A) 0.1 %; Eosinophils # (A) 0 X 10*3/uL (0.04-0.35); Eosinophils % (A) 0 %; HCT 41.3 % (39.6-50.0); HGB 12.9 g/dL (13.0-17.0); Immature Grans, Automated 0.7 %; Lymphocytes # (A) 1.08 X 10*3/uL (0.90-5.00); Lymphocytes % (A) 11.1 %; MCHC 31.2 g/dL (32.0-37.0); MCV 83.3 fL (80.0-97.0); Mean Platelet Volume 9.8 fL (9.5-12.2); Monocytes # (A) 0.47 X 10*3/uL (0.20-1.00); Monocytes % (A) 4.8 %; NRBC Per 100 WBC 0 /100 WBCS (0.0-0.0); Neutrophils # (A) 8.08 X 10*3/uL (1.80-7.70); Neutrophils % (A) 83.3 %; Platelet Count 319 X 10*3/uL (140-440); RBC 4.96 X 10*6/uL (4.40-5.60); WBC 9.71 X 10*3/uL (4.50-10.00)
[2021-08-10 10:01] LABS: African American GFR (CKD) 137.8 (60.0-200.0); Albumin 3.8 g/dL (3.8-4.9); Albumin/Globulin Ratio 1.46 (1.60-3.17); Anion Gap 13.4 mmol/L (10.00-18.00); BUN/Creat Ratio 11.42 Ratio (12.00-20.00); Calcium 8.6 mg/dL (8.7-10.3); Carbon Dioxide 20.5 mmol/L (20.0-27.5); Globulin 2.6 g/dL (1.6-3.3); Non-African American GFR(CKD) 118.9 (60.0-200.0); Potassium 4.4 mmol/L (3.5-5.5); Total Bilirubin 0.4 mg/dL (0.30-1.20); Total Protein 6.3 g/dL (6.2-8.2)
--- NOTE | 2021-08-10 10:50 | P.PN ---
Subjective Progress Note Date: 08/10/21 Patient seen and examined at bedside. Overnight, states that he had some chest and back pain that resolved after repositioning in bed. Denies nausea or vomiting. YOANDY drain in place with initial dark output that has turned into more sanguinous output. States he has been up and in the chair. Objective - Vital Signs Vital signs: Vital Signs Temp 97.8 F 08/10/21 07:00 Pulse 90 08/10/21 07:00 Resp 18 08/10/21 08:00 BP 126/77 08/10/21 07:00 Pulse Ox 97 08/10/21 07:00 Intake & Output 08/09/21 08/10/21 08/10/21 18:59 06:59 18:59 Intake Total 1640 Output Total 25 10 Balance 1615 -10 Intake: IV 1400 Oral 240 Output: Drainage 10 Right Anterior Abdomen 10 Estimated Blood Loss 25 Other: Voiding Method Toilet # Voids 1 2 - Constitutional General appearance: Present: cooperative - Respiratory Details: no difficulty with respiration - Gastrointestinal Gastrointestinal Comment(s): Soft, appropriate tenderness, nondistended, no rebound, no guarding, YOANDY drain in place with sanguinous output. - Psychiatric Psychiatric: Present: A&O x's 3 - Labs CBC & Chem 7: 08/10/21 06:30 08/10/21 06:30 Labs: Abnormal Lab Results - Last 24 Hours (Table) 08/09/21 08/10/21 08/10/21 Range/Units 17:13 06:30 06:30 Hgb 12.9 L (13.0-17.0) g/dL MCH 26.0 L (27.0-32.0) pg MCHC 31.2 L (32.0-37.0) g/dL Immature Gran # 0.07 H (0.00-0.04) X 10*3/uL Neutrophils # 9.1 H 8.08 H (1.3-7.7) k/uL Lymphocytes # 0.5 L (1.0-4.8) k/uL Eosinophils # 0 L (0.04-0.35) X 10*3/uL BUN/Creatinine Ratio 11.42 L (12.00-20.00) Ratio Glucose 113 H (70-110) mg/dL Calcium 8.6 L (8.7-10.3) mg/dL AST 39 H (14-35) U/L ALT 67 H (10-49) U/L Albumin/Globulin Ratio 1.46 L (1.60-3.17) g/dL Microbiology - Last 24 Hours (Table) 08/07/21 11:59 Blood Culture - Preliminary Blood No Growth after 48 hours 08/07/21 11:40 Blood Culture - Preliminary Blood No Growth after 48 hours Assessment and Plan Plan: Postoperative day #1, robotic cholecystectomy Advance to low-fat diet Decrease IV fluids Continue pain control Continue YOANDY drain Increase activity Continue incentive spirometry Laboratory values assessed
[2021-08-10] MEDS: MORPHINE SULFATE 4 MG/ML SYRINGE IV PRN (13:55)
[2021-08-10] MEDS: HYDROcodone/APAP 5-325MG 1 EACH TAB PO PRN (19:07)
[2021-08-10 22:06] VITALS: RESP 16
[2021-08-11] MEDS: HEPARIN SODIUM,PORCINE/PF 5,000 UNIT/0.5 ML SYRINGE SQ SCH ×2 (00:08→07:30)
[2021-08-11] MEDS: KETOROLAC 15 MG/ML 1 ML VIAL IVP SCH ×3 (00:08→12:35)
[2021-08-11] MEDS: metroNIDAZOLE-NS PMX 500 MG in SALINE 1 100ML.BAG IVPB SCH ×2 (00:10→07:29)
[2021-08-11] MEDS: LACTATED RINGERS 1,000 ML IV SCH (03:58)
[2021-08-11 07:12] VITALS: PULSE 80
[2021-08-11] MEDS: PANTOPRAZOLE 40 MG/10 ML VIAL IVP SCH (10:18)
--- NOTE | 2021-08-11 12:17 | P.DS ---
Providers Date of admission: 08/10/21 12:12 Attending physician: Deisy Waldron DO Primary care physician: Stated None Hospital Course: 31-year-old male was transferred from an outside facility secondary to acute cholecystitis. He underwent laparoscopic robotic-assisted cholecystectomy. Postoperatively, YOANDY drain was in place and he improved during his postoperative admission. He was continued on IV antibiotics. Patient states his pain is well-controlled and he is eager to go home. Tolerating diet. Postoperative labs were examined. Patient is surgically stable for discharge. Procedures: Robotic cholecystectomy Patient Condition at Discharge: Stable Plan - Discharge Summary Discharge Rx Participant: No New Discharge Prescriptions: New Ciprofloxacin HCl [Cipro] 500 mg PO Q12HR 7 Days #14 tab metroNIDAZOLE [Flagyl] 500 mg PO TID 7 Days #21 tab HYDROcodone/APAP 5-325MG [[place] 5-325] 1 each PO Q6HR PRN #10 tab PRN Reason: Pain Continue Cholecalciferol (Vitamin D3) [Vitamin D3 (3000 Iu)] 75 mcg PO DAILY Magnesium Oxide [Simmons] 500 mg PO DAILY Zinc Gluconate [Zinc] 50 mg PO DAILY Ascorbic Acid [Vitamin C] 1,000 mg PO DAILY Riboflavin (Vitamin B2) [Vitamin B-2] 50 mg PO DAILY Discharge Medication List Ascorbic Acid [Vitamin C] 1,000 mg PO DAILY 08/07/21 [History] Cholecalciferol (Vitamin D3) [Vitamin D3 (3000 Iu)] 75 mcg PO DAILY 08/07/21 [History] Magnesium Oxide [Simmons] 500 mg PO DAILY 08/07/21 [History] Riboflavin (Vitamin B2) [Vitamin B-2] 50 mg PO DAILY 08/07/21 [History] Zinc Gluconate [Zinc] 50 mg PO DAILY 08/07/21 [History] Ciprofloxacin HCl [Cipro] 500 mg PO Q12HR 7 Days #14 tab 08/11/21 [Rx] HYDROcodone/APAP 5-325MG [[place] 5-325] 1 each PO Q6HR PRN #10 tab 08/11/21 [Rx] metroNIDAZOLE [Flagyl] 500 mg PO TID 7 Days #21 tab 08/11/21 [Rx] Follow up Appointment(s)/Referral(s): None,Stated [Primary Care Provider] - 1-2 days Deisy Waldron DO [Doctor of Osteopathic Medicine] - 2 Weeks Patient Instructions/Handouts: Laparoscopic Cholecystectomy (DC) Activity/Diet/Wound Care/Special Instructions: Okay to shower, do not scrub on incisions Stay on a low-fat diet No lifting greater than 5 pounds Take antibiotics as prescribed take pain medication as necessary Discharge Disposition: HOME SELF-CARE
[2021-08-11 13:36] VITALS: BP 130/82; TEMP 98
== END 2021-08-11 14:40 | disposition home or self-care (01) | DRG 419 ==
LOC: EC 09:37 → 6NMEDSUR 10:49 → OBSVTOIN 08-10 12:12
PROVIDERS: ADMIT Surgery; ATTEND Surgery
PROC: 0FT44ZZ Resection of Gallbladder, Percutaneous Endoscopic Approach (ICD-10-PCS; principal; 2021-08-10)
PROC: 8E0W4CZ Robotic Assisted Procedure of Trunk Region, Percutaneous Endoscopic Approach (ICD-10-PCS; 2021-08-10)
PROC: BF53200 Other Imaging of Gallbladder and Bile Ducts using Fluorescing Agent, Indocyanine Green Dye, Intraoperative (ICD-10-PCS; 2021-08-10)
DX: K81.0 Acute cholecystitis (principal); K82.8 Other specified diseases of gallbladder; Z82.49 Family history of ischemic heart disease and other diseases of the circulatory system; Z83.3 Family history of diabetes mellitus; Z88.0 Allergy status to penicillin; Z87.19 Personal history of other diseases of the digestive system
CPT/HCPCS: 36415; 76705; 80053; 81003; 82150; 83690; 85025; 85610; 85730; 87040; 88304; 96360; 96361; 99285